=== PATIENT | female | born 1945 | race Caucasian/White ===

== ENCOUNTER → 2017-05-01 | Outpatient (CLI) | payer BC, MEDICARE, OTHER ==
[~2017-05-01] MED LIST: APIX2.5T PO; B CO1CAP4 PO; CARV6 PO; FOLI1 PO; HYDR25TA PO; INS7030 SQ; LOSA25TA21 PO; PHOSLOC PO; SACU1TAB PO; SEVEC800 PO; SIMV-260 PO
== END | disposition home or self-care (01) ==
LOC: RADPV 09:22
PROVIDERS: ATTEND Internal Medicine Endocrinology, Diabetes & Metabolism
DX: J98.11 Atelectasis (principal); I51.7 Cardiomegaly; I70.0 Atherosclerosis of aorta; Z95.0 Presence of cardiac pacemaker; Z98.890 Other specified postprocedural states
CPT/HCPCS: 71020

== ENCOUNTER → 2018-04-09 | Outpatient (CLI) | payer BC, MEDICARE | END | disposition home or self-care (01) | LOC: RADMN 12:56 | PROVIDERS: ATTEND Hospitalist | DX: I67.2 Cerebral atherosclerosis (principal); I67.82 Cerebral ischemia; I12.0 Hypertensive chronic kidney disease with stage 5 chronic kidney disease or end stage renal disease; E11.22 Type 2 diabetes mellitus with diabetic chronic kidney disease; N18.6 End stage renal disease | CPT/HCPCS: 70450 ==

== ENCOUNTER 2018-07-13 18:54 | Emergency (ER) | payer BC, OTHER ==
[~2018-07-13] VITALS: Ht 160 cm; Wt 62.3 kg
[~2018-07-13 18:54] MED LIST changes: +LOSA25TA16 PO; -LOSA25TA21 PO
[2018-07-13] MEDS ORDERED: NPH,100V SQ (19:12)
[2018-07-13 19:15] LABS: GLUCOSE,POINT OF CARE 188 MG/DL (70-110)
[2018-07-13] MEDS ORDERED: HYDROCORTISONE 1% 1.5 GM CREAM TP ONE (20:30)
[2018-07-13] MEDS ORDERED: AQUAPHOR OINTMENT 50 GM TUBE TP ONE (20:30)
[2018-07-13 21:14] VITALS: BP 129/78
== END 2018-07-13 21:42 | disposition home or self-care (01) ==
LOC: EMS 18:54
DX: S40.212A Abrasion of left shoulder, initial encounter (principal); S40.211A Abrasion of right shoulder, initial encounter; S50.811A Abrasion of right forearm, initial encounter; S80.812A Abrasion, left lower leg, initial encounter; L29.9 Pruritus, unspecified; I25.810 Atherosclerosis of coronary artery bypass graft(s) without angina pectoris; E11.9 Type 2 diabetes mellitus without complications; I25.2 Old myocardial infarction; N28.9 Disorder of kidney and ureter, unspecified; Z98.890 Other specified postprocedural states; Z99.2 Dependence on renal dialysis; Z88.0 Allergy status to penicillin; Z79.4 Long term (current) use of insulin; Z95.1 Presence of aortocoronary bypass graft; Z86.73 Personal history of transient ischemic attack (TIA), and cerebral infarction without residual deficits; Z91.040 Latex allergy status; Z88.6 Allergy status to analgesic agent; Z88.8 Allergy status to other drugs, medicaments and biological substances; Z79.899 Other long term (current) drug therapy; X58.XXXA Exposure to other specified factors, initial encounter; Y93.89 Activity, other specified; Y92.89 Other specified places as the place of occurrence of the external cause; Y99.8 Other external cause status